=== PATIENT | male | born 1975 | race African-American/Black ===

== ENCOUNTER → 2022-06-06 | Outpatient (CLI) | payer SELFPAY ==
[2022-06-06 11:26] LABS: CLARITY URINE CLEAR (CLEAR); COLOR URINE YELLOW (YELLOW); KETONES URINE TRACE (NEGATIVE); LEUKOCYTE ESTERASE URINE NEGATIVE (NEGATIVE); NITRITE URINE NEGATIVE (NEGATIVE); OCCULT BLOOD URINE NEGATIVE (NEGATIVE); PH URINE 6.5 (4.5-8.0); PROTEIN URINE 2+ (NEGATIVE); SPECIFIC GRAVITY URINE 1.031 (1.005-1.030)
[2022-06-06 13:03] LABS: CHLORIDE 100 mEq/L (98-107)
== END | disposition home or self-care (01) ==
LOC: LAB 10:49
PROVIDERS: ATTEND Podiatrist
DX: I10 Essential (primary) hypertension (principal); E11.9 Type 2 diabetes mellitus without complications
CPT/HCPCS: 36415; 80048; 81003

== ENCOUNTER 2022-07-13 11:57 | Inpatient (IN) | payer MEDICAID, SELFPAY ==
[~2022-07-13] VITALS: Ht 180.3 cm; Wt 97.5 kg
[2022-07-13] MEDS ORDERED: SODIUM CHLORIDE 0.9% 1,000 ML IV ONE (12:30)
[2022-07-13 12:57] LABS: BASOPHILS % 0.8 % (0.0-2.0); EOSINOPHILS % 0.5 % (0.0-5.0); HEMATOCRIT. 36.6 % (42.0-52.0); LYMPHOCYTES % 15.1 % (20.0-50.0); MEAN CORPUSCULAR VOLUME 88.6 fL (80.0-94.0); MEAN PLATELET VOLUME 7.9 fl (7.4-10.4); MONOCYTES % 7.5 % (2.0-8.0); NEUTROPHILS % 76.1 % (40.0-76.0); PLATELET 416 x1000/uL (130-400); RED BLOOD CELL COUNT 4.13 mill/uL (4.7-6.1); RED CELL DISTRIBUTION WIDTH 12.7 % (11.6-14.6)
[2022-07-13 13:14] LABS: PROTHROMBIN TIME 11.2 sec (9.6-11.0)
[2022-07-13 16:03] LABS: CHLORIDE 96 mEq/L (98-107)
[2022-07-13 16:03] LABS: CLARITY URINE CLEAR (CLEAR); COLOR URINE YELLOW (YELLOW); KETONES URINE TRACE (NEGATIVE); LEUKOCYTE ESTERASE URINE TRACE (NEGATIVE); NITRITE URINE NEGATIVE (NEGATIVE); OCCULT BLOOD URINE 2+ (NEGATIVE); PROTEIN URINE 2+ (NEGATIVE); SPECIFIC GRAVITY URINE 1.016 (1.005-1.030); UROBILINOGEN URINE 0.2 E.U./dL (0.2-1.0)
[2022-07-13 16:28] LABS: ETHANOL BLOOD < 10 mg/dL
[2022-07-13] MEDS ORDERED: CEFTRIAXONE 1 G PREMIX 50 ML IV ONE (16:30)
[2022-07-13 16:32] LABS: *AMPHETAMINES SCREEN URINE NEGATIVE (NEGATIVE); *BARBITURATES SCREEN URINE NEGATIVE (NEGATIVE); *BENZODIAZEPINES SCREEN URINE NEGATIVE (NEGATIVE); *COCAINE SCREEN URINE NEGATIVE (NEGATIVE); CANNABINOID URINE SCREEN NEGATIVE (NEGATIVE); METHADONE URINE SCREEN NEGATIVE (NEGATIVE); OPIATES URINE SCREEN PRESUMTIVE POSITIVE (NEGATIVE); PHENCYCLIDINE URINE SCREEN NEGATIVE (NEGATIVE)
[2022-07-14 04:19] VITALS: BP 132/70
[2022-07-14 04:20] VITALS: BP 132/70
[2022-07-14 08:00] VITALS: BP 128/75
[2022-07-14] MEDS ORDERED: DEXTROSE 50% WATER 50ML SYRINGE IV PRN (08:45)
[2022-07-14] MEDS ORDERED: ONDANSETRON HCL 4MG/2ML INJ IV PRN (08:45)
[2022-07-14] MEDS ORDERED: POTASSIUM CHLORIDE 20MEQ TABLET SR PO SCH (09:00)
[2022-07-14 11:54] VITALS: BP_SYST 110; BP_SYST 123; BP_SYST 147; BP_DIAS 63; BP_DIAS 81; BP_DIAS 83
[2022-07-14] MEDS: BLOOD SUGAR DIAGNOSTIC STRIP TEST SCH ×3 (12:13→20:11)
[2022-07-14] MEDS: INSULIN LISPRO 100 UNITS/ML SUBCUT SCH ×3 (12:47→20:11)
[2022-07-14] MEDS ORDERED: LISI40TA13 PO (13:01)
[2022-07-14] MEDS ORDERED: HYDR25TA PO (13:01)
[2022-07-14] MEDS ORDERED: CIPR500S4 PO (13:01)
[2022-07-14] MEDS ORDERED: ATOR20TA65 PO (13:01)
[2022-07-14] MEDS ORDERED: METF-414 PO (13:01)
[2022-07-14] MEDS ORDERED: TAMS-11 PO (13:01)
[2022-07-14] MEDS ORDERED: AMLO10TA80 PO (13:01)
[2022-07-14 15:40] VITALS: BP_SYST 127; BP_SYST 138; BP_SYST 144; BP_DIAS 81; BP_DIAS 83; BP_DIAS 85
[2022-07-14] MEDS: CEFTRIAXONE 1,000 MG in DEXTROSE 5% WATER 50 ML IV SCH (16:39)
[2022-07-14 20:00] VITALS: BP 136/82
[2022-07-15] VITALS: BP 159/86
[2022-07-15 04:00] VITALS: BP 142/89
[2022-07-15] MEDS: BLOOD SUGAR DIAGNOSTIC STRIP TEST SCH ×4 (05:43→20:08)
[2022-07-15] MEDS: INSULIN LISPRO 100 UNITS/ML SUBCUT SCH ×4 (05:53→20:19)
[2022-07-15 07:55] VITALS: BP 133/76
[2022-07-15 12:00] VITALS: BP 135/73
[2022-07-15 16:00] VITALS: BP_SYST 136; BP_SYST 147; BP_SYST 152; BP_DIAS 88
[2022-07-15] MEDS: CEFTRIAXONE 1,000 MG in DEXTROSE 5% WATER 50 ML IV SCH (16:45)
[2022-07-15 20:00] VITALS: BP 145/77
[2022-07-16] VITALS: BP 155/83
[2022-07-16 04:00] VITALS: BP 156/88
[2022-07-16 06:34] LABS: BASOPHILS % 1.2 % (0.0-2.0); EOSINOPHILS % 3.1 % (0.0-5.0); HEMATOCRIT. 33.9 % (42.0-52.0); HEMOGLOBIN. 11.4 g/dL (14.0-18.0); LYMPHOCYTES % 37.1 % (20.0-50.0); MEAN CORPUSCULAR HEMOGLOBIN 29.5 pg (28.0-32.0); MEAN CORPUSCULAR VOLUME 87.5 fL (80.0-94.0); MONOCYTES % 10.8 % (2.0-8.0); NEUTROPHILS % 47.8 % (40.0-76.0); PLATELET 361 x1000/uL (130-400); RED BLOOD CELL COUNT 3.87 mill/uL (4.7-6.1)
[2022-07-16] MEDS: BLOOD SUGAR DIAGNOSTIC STRIP TEST SCH ×4 (06:37→21:25)
[2022-07-16 06:40] LABS: CHLORIDE 102 mEq/L (98-107)
[2022-07-16] MEDS: INSULIN LISPRO 100 UNITS/ML SUBCUT SCH ×4 (06:43→21:25)
[2022-07-16 08:00] VITALS: BP 135/111
[2022-07-16] MEDS: SODIUM HYPOCHLORITE (0.25%) 480ML SOLUTION (HALF STRENGTH) TOP SCH (08:39)
[2022-07-16 12:00] VITALS: BP 155/88
[2022-07-16] MEDS: AMLODIPINE 5MG TABLET PO SCH (12:52)
[2022-07-16] MEDS: TAMSULOSIN HCL 0.4MG SR CAPSULE PO SCH (12:52)
[2022-07-16 16:00] VITALS: BP_SYST 118; BP_SYST 125; BP_SYST 134; BP_DIAS 68; BP_DIAS 73; BP_DIAS 80
[2022-07-16] MEDS: CEFTRIAXONE 1,000 MG in DEXTROSE 5% WATER 50 ML IV SCH (16:10)
[2022-07-16 20:00] VITALS: BP 151/81
[2022-07-16] MEDS: ATORVASTATIN CALCIUM 20MG TABLET PO SCH (21:24)
[2022-07-16] MEDS: ACETAMINOPHEN 325MG TABLET PO PRN (21:25)
[2022-07-17] VITALS: BP 134/75
[2022-07-17 04:00] VITALS: BP 142/79
[2022-07-17] MEDS: INSULIN LISPRO 100 UNITS/ML SUBCUT SCH ×4 (06:18→21:47)
[2022-07-17] MEDS: BLOOD SUGAR DIAGNOSTIC STRIP TEST SCH ×4 (06:18→21:48)
[2022-07-17 06:52] LABS: BASOPHILS % 0.8 % (0.0-2.0); EOSINOPHILS % 2.6 % (0.0-5.0); HEMATOCRIT. 30.8 % (42.0-52.0); HEMOGLOBIN. 10.3 g/dL (14.0-18.0); LYMPHOCYTES % 32.6 % (20.0-50.0); MEAN CORPUSCULAR HEMOGLOBIN 29.1 pg (28.0-32.0); MEAN CORPUSCULAR VOLUME 87.1 fL (80.0-94.0); MEAN PLATELET VOLUME 8.2 fl (7.4-10.4); PLATELET 366 x1000/uL (130-400); RED BLOOD CELL COUNT 3.54 mill/uL (4.7-6.1); RED CELL DISTRIBUTION WIDTH 12.9 % (11.6-14.6)
[2022-07-17 07:13] LABS: CHLORIDE 101 mEq/L (98-107)
[2022-07-17 08:00] VITALS: BP 130/76
[2022-07-17] MEDS: TAMSULOSIN HCL 0.4MG SR CAPSULE PO SCH (08:16)
[2022-07-17] MEDS: SODIUM HYPOCHLORITE (0.25%) 480ML SOLUTION (HALF STRENGTH) TOP SCH (08:16)
[2022-07-17] MEDS: AMLODIPINE 5MG TABLET PO SCH (08:16)
[2022-07-17 12:00] VITALS: BP 133/83
[2022-07-17] MEDS ORDERED: LACTULOSE 20G/30ML UDC PO SCH (12:30)
[2022-07-17] MEDS: ACETAMINOPHEN 325MG TABLET PO PRN (12:38)
[2022-07-17] MEDS ORDERED: LIDOCAINE HCL 1% 20ML VIAL (Pyxis) INJ INFIL SCH (14:00)
[2022-07-17] MEDS ORDERED: BUPIVACAINE HCL/PF 0.25% (2.5MG/ML) 10ML INFIL SCH (14:00)
[2022-07-17 16:00] VITALS: BP 136/78
[2022-07-17] MEDS: CEFTRIAXONE 1,000 MG in DEXTROSE 5% WATER 50 ML IV SCH (17:20)
[2022-07-17 20:00] VITALS: BP 130/74
[2022-07-17] MEDS: ATORVASTATIN CALCIUM 20MG TABLET PO SCH (21:47)
[2022-07-17] MEDS: INSULIN GLARGINE 100 UNITS/ML SUBCUT SCH (21:48)
[2022-07-17] MEDS: HYDROCODONE/ACETAMINOPHEN 5/325MG TABLET PO PRN (22:24)
[2022-07-18] VITALS: BP 149/88
[2022-07-18 04:00] VITALS: BP 152/79
[2022-07-18] MEDS: INSULIN LISPRO 100 UNITS/ML SUBCUT SCH ×4 (06:23→20:38)
[2022-07-18] MEDS: BLOOD SUGAR DIAGNOSTIC STRIP TEST SCH ×4 (06:33→20:39)
[2022-07-18 08:00] VITALS: BP 128/69
[2022-07-18] MEDS: INSULIN GLARGINE 100 UNITS/ML SUBCUT SCH ×2 (09:07→21:22)
[2022-07-18] MEDS: AMLODIPINE 5MG TABLET PO SCH (09:09)
[2022-07-18] MEDS: TAMSULOSIN HCL 0.4MG SR CAPSULE PO SCH (09:09)
[2022-07-18] MEDS: SODIUM HYPOCHLORITE (0.25%) 480ML SOLUTION (HALF STRENGTH) TOP SCH (09:10)
[2022-07-18] MEDS ORDERED: IOHEXOL-350 100 ML BOTTLE ONE (10:35)
[2022-07-18 12:00] VITALS: BP 164/83
[2022-07-18] MEDS ORDERED: LIDOCAINE HCL 1% 10 MG/ML 10ML VIAL INL NR (12:00)
[2022-07-18] MEDS ORDERED: BUPIVACAINE HCL/PF 0.25% (2.5MG/ML) 10ML INFIL NR (12:00)
[2022-07-18] MEDS ORDERED: MORPHINE SULFATE 2 MG/ML CPJ (NOT FOR IM USE) IV SCH (14:15)
[2022-07-18] MEDS ORDERED: LIDOCAINE HCL 1% 10 MG/ML 10ML VIAL INL SCH (14:15)
[2022-07-18 16:00] VITALS: BP 128/60
[2022-07-18] MEDS: CEFTRIAXONE 1,000 MG in DEXTROSE 5% WATER 50 ML IV SCH (18:00)
[2022-07-18 20:00] VITALS: BP 149/80
[2022-07-18] MEDS: ATORVASTATIN CALCIUM 20MG TABLET PO SCH (20:35)
[2022-07-18] MEDS: ACETAMINOPHEN 325MG TABLET PO PRN (20:36)
[2022-07-18] MEDS ORDERED: NALOXONE HCL 0.4MG/ML VIAL IV PRN (20:45)
[2022-07-18] MEDS ORDERED: CEFEPIME 1,000 MG in DEXTROSE 5% WATER 50 ML IV SCH (21:00)
[2022-07-18] MEDS: CLONIDINE 0.1MG TABLET PO PRN (21:22)
[2022-07-18] MEDS: CEFEPIME 1,000 MG in DEXTROSE 5% WATER 50 ML IV SCH (21:23)
[2022-07-19] VITALS: BP 154/84
[2022-07-19] MEDS ORDERED: VANCOMYCIN 2,000 MG in DEXT 5% WATER 500 ML IV NR (01:00)
[2022-07-19 04:00] VITALS: BP 142/88
[2022-07-19] MEDS: CEFEPIME 1,000 MG in DEXTROSE 5% WATER 50 ML IV SCH ×3 (05:23→21:46)
[2022-07-19] MEDS: ACETAMINOPHEN 325MG TABLET PO PRN ×2 (06:02→12:34)
[2022-07-19] MEDS: BLOOD SUGAR DIAGNOSTIC STRIP TEST SCH ×4 (07:20→20:58)
[2022-07-19] MEDS: INSULIN LISPRO 100 UNITS/ML SUBCUT SCH ×4 (07:22→21:48)
[2022-07-19 08:00] VITALS: BP 153/81
[2022-07-19] MEDS: AMLODIPINE 5MG TABLET PO SCH (08:43)
[2022-07-19] MEDS: SODIUM HYPOCHLORITE (0.25%) 480ML SOLUTION (HALF STRENGTH) TOP SCH (08:44)
[2022-07-19] MEDS: TAMSULOSIN HCL 0.4MG SR CAPSULE PO SCH (08:44)
[2022-07-19] MEDS ORDERED: VANCOMYCIN 1GM PMX (XELLIA) 200 ML IV SCH (10:00)
[2022-07-19] MEDS: INSULIN GLARGINE 100 UNITS/ML SUBCUT SCH ×2 (10:53→21:49)
[2022-07-19 12:00] VITALS: BP 114/79
[2022-07-19] MEDS: VANCOMYCIN 1GM PMX (XELLIA) 200 ML IV SCH ×2 (14:55→21:46)
[2022-07-19 16:00] VITALS: BP 147/85
[2022-07-19] MEDS: DOCUSATE SODIUM 250MG CAPSULE PO SCH (17:29)
[2022-07-19 20:00] VITALS: BP 145/76
[2022-07-19] MEDS: ATORVASTATIN CALCIUM 20MG TABLET PO SCH (20:53)
[2022-07-19] MEDS: LACTULOSE 20G/30ML UDC PO PRN (20:53)
[2022-07-20] VITALS: BP 149/76
[2022-07-20] MEDS ORDERED: NA PHOS,M-B/NA PHOS,DI-BA ENEMA 118ML PR ONE (00:30)
[2022-07-20] MEDS ORDERED: NA PHOS,M-B/NA PHOS,DI-BA ENEMA 118ML PR PRN (01:00)
[2022-07-20 04:00] VITALS: BP 147/76
[2022-07-20] MEDS: VANCOMYCIN 1GM PMX (XELLIA) 200 ML IV SCH (05:12)
[2022-07-20] MEDS: CEFEPIME 1,000 MG in DEXTROSE 5% WATER 50 ML IV SCH ×3 (05:12→21:32)
[2022-07-20 06:16] LABS: BASOPHILS % 0.7 % (0.0-2.0); EOSINOPHILS % 0.7 % (0.0-5.0); HEMATOCRIT. 33.8 % (42.0-52.0); HEMOGLOBIN. 11.4 g/dL (14.0-18.0); LYMPHOCYTES % 12.2 % (20.0-50.0); MEAN CORPUSCULAR HEMOGLOBIN 29.5 pg (28.0-32.0); MEAN CORPUSCULAR VOLUME 87.8 fL (80.0-94.0); MEAN PLATELET VOLUME 8.2 fl (7.4-10.4); NEUTROPHILS % 77.4 % (40.0-76.0); PLATELET 372 x1000/uL (130-400); RED BLOOD CELL COUNT 3.85 mill/uL (4.7-6.1); RED CELL DISTRIBUTION WIDTH 12.9 % (11.6-14.6)
[2022-07-20] MEDS: BLOOD SUGAR DIAGNOSTIC STRIP TEST SCH ×2 (06:23→21:30)
[2022-07-20 06:55] LABS: CHLORIDE 103 mEq/L (98-107)
[2022-07-20 07:03] LABS: VANCOMYCIN TROUGH 19.8 ug/mL (5.0-10.0)
[2022-07-20] MEDS: DOCUSATE SODIUM 250MG CAPSULE PO SCH (08:39)
[2022-07-20] MEDS: AMLODIPINE 5MG TABLET PO SCH (08:39)
[2022-07-20] MEDS: TAMSULOSIN HCL 0.4MG SR CAPSULE PO SCH (08:40)
[2022-07-20] MEDS: SODIUM HYPOCHLORITE (0.25%) 480ML SOLUTION (HALF STRENGTH) TOP SCH (09:00)
[2022-07-20 12:00] VITALS: BP 160/83
[2022-07-20 16:00] VITALS: BP 158/85
[2022-07-20 20:00] VITALS: BP 167/81
[2022-07-20] MEDS: CLONIDINE 0.1MG TABLET PO PRN (21:25)
[2022-07-20] MEDS: ATORVASTATIN CALCIUM 20MG TABLET PO SCH (21:27)
[2022-07-20] MEDS: INSULIN LISPRO 100 UNITS/ML SUBCUT SCH (21:29)
[2022-07-20] MEDS: INSULIN GLARGINE 100 UNITS/ML SUBCUT SCH (21:30)
[2022-07-20] MEDS: ACETAMINOPHEN 325MG TABLET PO PRN (21:57)
[2022-07-21 00:36] VITALS: BP 135/86
[2022-07-21 04:00] VITALS: BP 120/85
[2022-07-21] MEDS: CEFEPIME 1,000 MG in DEXTROSE 5% WATER 50 ML IV SCH ×3 (05:14→22:00)
[2022-07-21] MEDS: VANCOMYCIN 1GM PMX (XELLIA) 200 ML IV SCH ×2 (05:15→18:21)
[2022-07-21] MEDS: BLOOD SUGAR DIAGNOSTIC STRIP TEST SCH ×4 (06:27→20:32)
[2022-07-21] MEDS: INSULIN LISPRO 100 UNITS/ML SUBCUT SCH ×4 (07:41→20:33)
[2022-07-21] MEDS ORDERED: IODIXANOL 320MG/ML 100 ML BOTTLE IV ONE (08:43)
[2022-07-21] MEDS ORDERED: LIDOCAINE HCL/PF 1% 10 MG/ML 5ML VIAL ONE (08:49)
[2022-07-21] MEDS: AMLODIPINE 5MG TABLET PO SCH (09:00)
[2022-07-21] MEDS: SODIUM HYPOCHLORITE (0.25%) 480ML SOLUTION (HALF STRENGTH) TOP SCH (09:00)
[2022-07-21] MEDS: DOCUSATE SODIUM 250MG CAPSULE PO SCH (09:00)
[2022-07-21] MEDS: TAMSULOSIN HCL 0.4MG SR CAPSULE PO SCH (09:00)
[2022-07-21] MEDS: INSULIN GLARGINE 100 UNITS/ML SUBCUT SCH ×2 (09:41→22:00)
[2022-07-21] MEDS ORDERED: MIDAZOLAM HCL 2 MG/2 ML VIAL ONE (10:01)
[2022-07-21] MEDS ORDERED: FENTANYL CITRATE/PF 50MCG/ML 2ML VIAL ONE (10:01)
[2022-07-21] MEDS ORDERED: HEPARIN 1000 UNITS/ML 10ML ONE (10:01)
[2022-07-21 11:40] VITALS: BP 156/90
[2022-07-21] MEDS: CLOPIDOGREL 75MG TABLET PO SCH (11:53)
[2022-07-21] MEDS: ACETAMINOPHEN 325MG TABLET PO PRN (11:53)
[2022-07-21] MEDS: CLONIDINE 0.1MG TABLET PO PRN (13:43)
[2022-07-21 16:00] VITALS: BP 150/86
[2022-07-21 20:00] VITALS: BP 159/85
[2022-07-21] MEDS: ATORVASTATIN CALCIUM 20MG TABLET PO SCH (21:00)
[2022-07-22] VITALS: BP 149/87
[2022-07-22] MEDS: HYDROCODONE/ACETAMINOPHEN 5/325MG TABLET PO PRN (03:07)
[2022-07-22 04:00] VITALS: BP 132/82
[2022-07-22] MEDS: CEFEPIME 1,000 MG in DEXTROSE 5% WATER 50 ML IV SCH ×3 (06:16→22:04)
[2022-07-22] MEDS: BLOOD SUGAR DIAGNOSTIC STRIP TEST SCH ×4 (06:16→21:00)
[2022-07-22] MEDS: INSULIN LISPRO 100 UNITS/ML SUBCUT SCH ×5 (06:21→22:06)
[2022-07-22] MEDS: VANCOMYCIN 1GM PMX (XELLIA) 200 ML IV SCH ×2 (06:23→17:50)
[2022-07-22 07:56] LABS: CHLORIDE 102 mEq/L (98-107)
[2022-07-22 08:00] VITALS: BP 148/86
[2022-07-22] MEDS: CLOPIDOGREL 75MG TABLET PO SCH (08:28)
[2022-07-22] MEDS: DOCUSATE SODIUM 250MG CAPSULE PO SCH (08:28)
[2022-07-22] MEDS: TAMSULOSIN HCL 0.4MG SR CAPSULE PO SCH (08:29)
[2022-07-22] MEDS: AMLODIPINE 5MG TABLET PO SCH ×2 (08:30→17:49)
[2022-07-22] MEDS: SODIUM HYPOCHLORITE (0.25%) 480ML SOLUTION (HALF STRENGTH) TOP SCH (08:31)
[2022-07-22] MEDS: INSULIN GLARGINE 100 UNITS/ML SUBCUT SCH ×2 (10:27→13:16)
[2022-07-22 12:00] VITALS: BP 162/90
[2022-07-22] MEDS: CLONIDINE 0.1MG TABLET PO PRN (12:52)
[2022-07-22 16:00] VITALS: BP 154/79
[2022-07-22] MEDS: ACETAMINOPHEN 325MG TABLET PO PRN (16:21)
[2022-07-22] MEDS ORDERED: LANTUSUD SUBCUT (18:17)
[2022-07-22 20:00] VITALS: BP 136/76
[2022-07-22] MEDS: ATORVASTATIN CALCIUM 20MG TABLET PO SCH (22:05)
[2022-07-23] VITALS: BP 138/78
[2022-07-23] MEDS: LACTULOSE 20G/30ML UDC PO PRN ×2 (03:07→18:09)
[2022-07-23] MEDS: CEFEPIME 1,000 MG in DEXTROSE 5% WATER 50 ML IV SCH ×3 (06:39→21:30)
[2022-07-23] MEDS: INSULIN LISPRO 100 UNITS/ML SUBCUT SCH ×4 (07:50→21:30)
[2022-07-23] MEDS: BLOOD SUGAR DIAGNOSTIC STRIP TEST SCH ×4 (07:54→21:31)
[2022-07-23] MEDS: VANCOMYCIN 1GM PMX (XELLIA) 200 ML IV SCH ×2 (07:55→18:07)
[2022-07-23 08:00] VITALS: BP 157/89
[2022-07-23] MEDS: DOCUSATE SODIUM 250MG CAPSULE PO SCH (09:10)
[2022-07-23] MEDS: TAMSULOSIN HCL 0.4MG SR CAPSULE PO SCH (09:11)
[2022-07-23] MEDS: AMLODIPINE 5MG TABLET PO SCH ×2 (09:11→18:07)
[2022-07-23] MEDS: SODIUM HYPOCHLORITE (0.25%) 480ML SOLUTION (HALF STRENGTH) TOP SCH (09:12)
[2022-07-23] MEDS: CLOPIDOGREL 75MG TABLET PO SCH (09:12)
[2022-07-23] MEDS: INSULIN GLARGINE 100 UNITS/ML SUBCUT SCH ×2 (10:29→21:29)
[2022-07-23 12:00] VITALS: BP 154/92
[2022-07-23] MEDS: ACETAMINOPHEN 325MG TABLET PO PRN ×2 (13:10→21:55)
[2022-07-23 16:00] VITALS: BP 148/76
[2022-07-23] MEDS: ATORVASTATIN CALCIUM 20MG TABLET PO SCH (21:26)
[2022-07-23] MEDS: GABAPENTIN 100MG CAPSULE PO SCH (21:26)
[2022-07-24 04:00] VITALS: BP 160/93
[2022-07-24] MEDS: GABAPENTIN 100MG CAPSULE PO SCH ×2 (06:21→12:59)
[2022-07-24] MEDS: CLONIDINE 0.1MG TABLET PO PRN (06:22)
[2022-07-24] MEDS: BLOOD SUGAR DIAGNOSTIC STRIP TEST SCH ×2 (07:20→13:05)
[2022-07-24] MEDS: INSULIN LISPRO 100 UNITS/ML SUBCUT SCH ×2 (07:50→13:04)
[2022-07-24 07:59] VITALS: BP 133/76
[2022-07-24] MEDS: TAMSULOSIN HCL 0.4MG SR CAPSULE PO SCH (08:28)
[2022-07-24] MEDS: DOCUSATE SODIUM 250MG CAPSULE PO SCH (08:29)
[2022-07-24] MEDS: CLOPIDOGREL 75MG TABLET PO SCH (08:29)
[2022-07-24] MEDS: AMLODIPINE 5MG TABLET PO SCH (08:29)
[2022-07-24] MEDS: SODIUM HYPOCHLORITE (0.25%) 480ML SOLUTION (HALF STRENGTH) TOP SCH (08:31)
[2022-07-24] MEDS: INSULIN GLARGINE 100 UNITS/ML SUBCUT SCH (10:34)
[2022-07-24 12:00] VITALS: BP 156/85
[2022-07-24 12:47] VITALS: BP 156/85
[2022-07-24] MEDS ORDERED: GABA-532 MT (13:15)
== END 2022-07-24 15:11 | disposition home or self-care (01) | DRG 317 ==
LOC: ER 11:57 → MICUSO 16:14 → EDBEDREQTM 16:17 → EDBEDREQ 16:17 → 8WST 07-14 04:45 → 6EST 07-18 10:34
PROVIDERS: ADMIT Internal Medicine; ATTEND Internal Medicine
PROC: 0LBS0ZZ Excision of Right Ankle Tendon, Open Approach (ICD-10-PCS; 2022-07-18)
PROC: 047S3ZZ Dilation of Left Posterior Tibial Artery, Percutaneous Approach (ICD-10-PCS; principal; 2022-07-21)
PROC: 047Q3ZZ Dilation of Left Anterior Tibial Artery, Percutaneous Approach (ICD-10-PCS; 2022-07-21)
PROC: B41GYZZ Fluoroscopy of Left Lower Extremity Arteries using Other Contrast (ICD-10-PCS; 2022-07-21)
DX: T87.44 Infection of amputation stump, left lower extremity (principal); E43 Unspecified severe protein-calorie malnutrition; E11.51 Type 2 diabetes mellitus with diabetic peripheral angiopathy without gangrene; G90.8 Other disorders of autonomic nervous system; E87.1 Hypo-osmolality and hyponatremia; L97.529 Non-pressure chronic ulcer of other part of left foot with unspecified severity; E11.621 Type 2 diabetes mellitus with foot ulcer; D64.9 Anemia, unspecified; E87.6 Hypokalemia; N39.0 Urinary tract infection, site not specified; Z68.30 Body mass index [BMI] 30.0-30.9, adult; Z79.4 Long term (current) use of insulin
CPT/HCPCS: 36415; 37228; 37232; 71045; 73630; 75635; 75710; 80048; 80053; 80202; 80305; 80320; 81003; 82962; 83036; 83605; 83880; 84484; 85025; 85651; 86850; 86900; 87070; 87077; 87186; 87426; 93005; 93306; 93923; 99285; C1725; C1760; C1769; C1887; C1893; C1894; J0692; J0696; J1644; J1815; J2250; J2270; J3010; J3370; J3490; J7030; J7060; Q9967; G0480

== ENCOUNTER 2022-07-25 20:55 | Emergency (ER) | payer MEDICAID ==
[~2022-07-25] VITALS: Ht 180.3 cm; Wt 98.4 kg
[~2022-07-25 20:55] MED LIST: AMLO10TA80 PO; ATOR20TA65 PO; GABA-532 MT; HYDR25TA PO; LANTUSUD SUBCUT; LISI40TA13 PO; METF-414 PO; TAMS-11 PO
[2022-07-25 22:12] VITALS: BP 144/80
[2022-07-26] MEDS ORDERED: NA P133E4 RC ×3 (01:10→01:11)
== END 2022-07-26 01:29 | disposition home or self-care (01) ==
LOC: ER 20:55
DX: K59.00 Constipation, unspecified (principal); E11.9 Type 2 diabetes mellitus without complications; I10 Essential (primary) hypertension; Z88.8 Allergy status to other drugs, medicaments and biological substances; Z89.429 Acquired absence of other toe(s), unspecified side
CPT/HCPCS: 99282

== ENCOUNTER 2025-06-04 11:43 | Inpatient (IN) | payer MEDICAID ==
[~2025-06-04] VITALS: Ht 180.3 cm; Wt 138.3 kg
[~2025-06-04 11:43] MED LIST changes: +GABA-1180 MT; -GABA-532 MT; +NA P133E4 RC; -TAMS-11 PO; +TAMS-54 PO
[2025-06-04 11:50] VITALS: O2SAT 99
[2025-06-04] MEDS: PIPERACILLIN/TAZO 3.375G/50ML 50 ML IV SCH ×2 (15:37→23:08)
[2025-06-04 15:44] LABS: BASOPHILS % 0.5 % (0.0-2.0); EOSINOPHILS % 0.9 % (0.0-5.0); HEMATOCRIT. 43.5 % (42.0-52.0); HEMOGLOBIN. 14.0 g/dL (14.0-18.0); LYMPHOCYTES % 15.7 % (20.0-50.0); MEAN PLATELET VOLUME 8.6 fl (7.4-10.4); MONOCYTES % 6.9 % (2.0-8.0); NEUTROPHILS % 76.0 % (40.0-76.0); PLATELET 325 x1000/uL (130-400); RED BLOOD CELL COUNT 4.77 mill/uL (4.7-6.1); RED CELL DISTRIBUTION WIDTH 14.3 % (11.6-14.6)
[2025-06-04 16:00] LABS: CREATININE 1.1 mg/dL (0.6-1.3); UREA NITROGEN BLOOD 20 mg/dL (9-23)
[2025-06-04 17:49] VITALS: BP 170/96; PULSE 80; RESP 18; TEMP 36.7516
[2025-06-04] MEDS ORDERED: HYDROCODONE/ACETAMINOPHEN 5/325MG TABLET PO PRN ×2 (19:45→20:00)
[2025-06-04] MEDS ORDERED: DEXTROSE 50% WATER 50ML SYRINGE IV PRN (20:00)
[2025-06-04] MEDS: VANCOMYCIN 1G PREMIX 200 ML IV SCH ×2 (20:14→21:36)
[2025-06-04 20:49] VITALS: BP 163/90; PULSE 78; RESP 18; TEMP 36.3; O2SAT 97
[2025-06-04] MEDS: ATORVASTATIN CALCIUM 20MG TABLET PO SCH (21:53)
[2025-06-04] MEDS: LISINOPRIL 40MG TABLET PO SCH (21:53)
[2025-06-04] MEDS: AMLODIPINE 10MG TABLET PO SCH (21:54)
[2025-06-04] MEDS: HYDROCHLOROTHIAZIDE 25MG TABLET PO SCH (21:54)
[2025-06-04] MEDS: BLOOD SUGAR DIAGNOSTIC STRIP TEST SCH (21:55)
[2025-06-04] MEDS: INSULIN GLARGINE 100 UNITS/ML SUBCUT SCH (22:03)
[2025-06-04] MEDS: INSULIN LISPRO 100 UNITS/ML SUBCUT SCH (22:18)
[2025-06-05 00:15] VITALS: BP 145/91; PULSE 77; RESP 18; TEMP 36.2
[2025-06-05 05:39] VITALS: BP 176/95; PULSE 82; RESP 18; TEMP 37.1; O2SAT 95
[2025-06-05 08:00] VITALS: BP 158/89; PULSE 78; RESP 18; TEMP 36.6; O2SAT 97
[2025-06-05] MEDS: GABAPENTIN 300MG CAPSULE PO SCH (09:42)
[2025-06-05] MEDS: METFORMIN HCL 500MG TABLET PO SCH (09:49)
[2025-06-05] MEDS ORDERED: NALOXONE HCL 0.4MG/ML VIAL IV PRN (11:30)
[2025-06-05 12:00] VITALS: BP 155/81; PULSE 75; RESP 18; TEMP 36.5; O2SAT 98
[2025-06-05 16:00] VITALS: BP 183/87; PULSE 77; RESP 18; TEMP 36.6; O2SAT 98
[2025-06-05 20:00] VITALS: BP 141/83; PULSE 87; RESP 18; TEMP 36.9; O2SAT 95
[2025-06-05] MEDS: ENOXAPARIN 30MG/0.3ML SYR SUBCUT SCH (22:10)
[2025-06-05] MEDS: GUAIFENESIN-DM 200MG-20MG/10ML UDC PO PRN (22:17)
[2025-06-05] MEDS: INSULIN GLARGINE 100 UNITS/ML SUBCUT SCH (22:20)
[2025-06-06 00:35] VITALS: BP 154/82; PULSE 89; RESP 18; TEMP 36.5; O2SAT 95
[2025-06-06 04:40] VITALS: BP 169/95; PULSE 90; RESP 20; TEMP 36.4; O2SAT 97
[2025-06-06] MEDS: CLONIDINE 0.1MG TABLET PO PRN (04:41)
[2025-06-06 05:59] LABS: BASOPHILS % 0.5 % (0.0-2.0); EOSINOPHILS % 1.5 % (0.0-5.0); HEMATOCRIT. 40.8 % (42.0-52.0); HEMOGLOBIN. 13.2 g/dL (14.0-18.0); LYMPHOCYTES % 16.3 % (20.0-50.0); MEAN PLATELET VOLUME 8.5 fl (7.4-10.4); MONOCYTES % 7.8 % (2.0-8.0); NEUTROPHILS % 73.9 % (40.0-76.0); PLATELET 328 x1000/uL (130-400); RED BLOOD CELL COUNT 4.54 mill/uL (4.7-6.1); RED CELL DISTRIBUTION WIDTH 13.8 % (11.6-14.6)
[2025-06-06 06:40] LABS: CREATININE 1.3 mg/dL (0.6-1.3); UREA NITROGEN BLOOD 20 mg/dL (9-23)
[2025-06-06 08:00] VITALS: BP 141/84; PULSE 77; RESP 20; TEMP 36.4; O2SAT 94
[2025-06-06 12:00] VITALS: BP 164/98; PULSE 82; RESP 20; TEMP 36.4; O2SAT 97
[2025-06-06] MEDS: VANCOMYCIN 750MG PMX (XELLIA) 150 ML IV SCH (12:14)
[2025-06-06] MEDS ORDERED: IOHEXOL-350 100 ML BOTTLE ONE (14:45)
[2025-06-06 16:00] VITALS: BP 141/73; PULSE 77; RESP 20; TEMP 36.5; O2SAT 96
[2025-06-06 20:00] VITALS: BP 124/73; PULSE 74; RESP 18; TEMP 36.3; O2SAT 95
[2025-06-07] VITALS: BP 135/70; PULSE 79; RESP 19; TEMP 36.4; O2SAT 94
[2025-06-07 04:00] VITALS: BP 114/72; PULSE 67; RESP 19; TEMP 36.4; O2SAT 94
[2025-06-07 08:00] VITALS: BP 136/70; PULSE 83; RESP 18; TEMP 37.2; O2SAT 97
[2025-06-07 12:00] VITALS: BP 144/66; PULSE 83; RESP 20; TEMP 36.6; O2SAT 97
[2025-06-07] MEDS: INSULIN LISPRO 100 UNITS/ML SUBCUT SCH (12:38)
[2025-06-07 16:00] VITALS: BP 154/77; PULSE 79; RESP 20; TEMP 36.9; O2SAT 99
[2025-06-07 20:00] VITALS: BP 172/88; PULSE 78; RESP 20; TEMP 37; O2SAT 99
[2025-06-08] VITALS: BP 133/73; PULSE 80; RESP 18; TEMP 37; O2SAT 97
[2025-06-08 04:00] VITALS: BP 148/79; PULSE 75; RESP 18; TEMP 36.8; O2SAT 97
[2025-06-08] MEDS ORDERED: ETOMIDATE 2MG/ML 10ML VIAL IV ONE (07:46)
[2025-06-08] MEDS ORDERED: MIDAZOLAM HCL 2 MG/2 ML VIAL ONE (07:47)
[2025-06-08] MEDS ORDERED: FENTANYL CITRATE/PF 50MCG/ML 2ML VIAL ONE (07:47)
[2025-06-08 08:00] VITALS: BP 163/86; PULSE 78; RESP 18; TEMP 36.6; O2SAT 97
[2025-06-08 12:00] VITALS: BP 154/82; PULSE 82; RESP 20; TEMP 36.6; O2SAT 98
[2025-06-08 16:00] VITALS: BP 147/77; PULSE 75; RESP 18; TEMP 36.8; O2SAT 99
[2025-06-08] MEDS: CEFTRIAXONE 2GM/50ML 50 ML IV SCH (17:05)
[2025-06-08 20:00] VITALS: BP 150/63; PULSE 74; RESP 18; TEMP 36.1; O2SAT 97
[2025-06-08] MEDS: METRONIDAZOLE 500MG TABLET PO SCH (21:17)
[2025-06-09] VITALS (7 sets, daily range): BP systolic 118–184; BP diastolic 52–77; PULSE 74–89; RESP 18–19; TEMP 36.4–37; O2SAT 97–98
[2025-06-09] MEDS: HYDRALAZINE HCL 25MG TABLET PO SCH (15:05)
[2025-06-10] VITALS: BP 153/90; PULSE 77; RESP 18; TEMP 37; O2SAT 97
[2025-06-10 04:20] VITALS: BP 154/74; PULSE 75; RESP 18; TEMP 36.8; O2SAT 97
[2025-06-10 08:00] VITALS: BP 129/64; PULSE 71; RESP 18; TEMP 35.6; O2SAT 97
[2025-06-10 12:00] VITALS: BP 134/74; PULSE 81; RESP 18; TEMP 36.9; O2SAT 99
[2025-06-10 16:00] VITALS: BP 152/81; PULSE 77; RESP 18; TEMP 36.7; O2SAT 98
[2025-06-10 20:00] VITALS: BP 146/75; PULSE 84; RESP 20; TEMP 36.4; O2SAT 95
[2025-06-11] VITALS: BP 165/95; PULSE 89; RESP 20; TEMP 36.2; O2SAT 98
[2025-06-11 04:00] VITALS: BP 129/85; PULSE 67; RESP 20; TEMP 36.3; O2SAT 95
[2025-06-11] MEDS ORDERED: LIDOCAINE HCL 1% 10 MG/ML 10ML VIAL ONE (07:39)
[2025-06-11 08:00] VITALS: BP 138/72; PULSE 74; RESP 18; TEMP 37.1; O2SAT 98
[2025-06-11 12:00] VITALS: BP 151/87; PULSE 74; RESP 17; TEMP 36.4; O2SAT 96
[2025-06-11 16:00] VITALS: BP 169/98; PULSE 75; RESP 18; TEMP 36.5; O2SAT 97
[2025-06-11 20:00] VITALS: BP 137/83; PULSE 70; RESP 16; TEMP 36; O2SAT 98
[2025-06-12] VITALS: BP 143/88; PULSE 74; RESP 16; TEMP 36.3; O2SAT 98
[2025-06-12 04:00] VITALS: BP 153/84; PULSE 77; RESP 16; TEMP 36.2; O2SAT 99
[2025-06-12 08:00] VITALS: BP 149/86; PULSE 75; RESP 18; TEMP 36.1; O2SAT 96
[2025-06-12 10:07] VITALS: BP 149/85; PULSE 75; RESP 18; TEMP 97
[2025-06-12] MEDS ORDERED: HYDR25TA MT (11:42)
[2025-06-12] MEDS ORDERED: AMLO10TA80 MT (11:42)
[2025-06-12] MEDS ORDERED: LISI40TA13 MT (11:42)
[2025-06-12 12:00] VITALS: BP 156/91; PULSE 85; RESP 18; TEMP 36.4; O2SAT 95
== END 2025-06-12 15:20 | disposition home health service (06) | DRG 349 ==
LOC: ER 11:50 → 8WST 15:48 → EDBEDREQTM 15:53 → EDBEDREQ 15:53 → EDBEDREQSVC 15:53 → ENRESERV 15:58 → 6EST 06-10 17:03
PROVIDERS: ADMIT Internal Medicine; ATTEND Internal Medicine
PROC: 02HV33Z Insertion of Infusion Device into Superior Vena Cava, Percutaneous Approach (ICD-10-PCS; principal; 2025-06-11)
PROC: B548ZZA Ultrasonography of Superior Vena Cava, Guidance (ICD-10-PCS; 2025-06-11)
DX: T87.44 Infection of amputation stump, left lower extremity (principal); E11.51 Type 2 diabetes mellitus with diabetic peripheral angiopathy without gangrene; E11.621 Type 2 diabetes mellitus with foot ulcer; L03.116 Cellulitis of left lower limb; L97.429 Non-pressure chronic ulcer of left heel and midfoot with unspecified severity; E11.65 Type 2 diabetes mellitus with hyperglycemia; E11.69 Type 2 diabetes mellitus with other specified complication; I10 Essential (primary) hypertension; E66.9 Obesity, unspecified; Z53.20 Procedure and treatment not carried out because of patient's decision for unspecified reasons; Y83.5 Amputation of limb(s) as the cause of abnormal reaction of the patient, or of later complication, without mention of misadventure at the time of the procedure; M86.8X7 Other osteomyelitis, ankle and foot; I70.202 Unspecified atherosclerosis of native arteries of extremities, left leg; Z79.899 Other long term (current) drug therapy; Z79.84 Long term (current) use of oral hypoglycemic drugs; Z79.4 Long term (current) use of insulin; Y92.89 Other specified places as the place of occurrence of the external cause; Z68.41 Body mass index [BMI] 40.0-44.9, adult
CPT/HCPCS: 36415; 36573; 71045; 73630; 73721; 75635; 80048; 80202; 82962; 83036; 85025; 85651; 86141; 93923; 97162; 97530; 97542; 99285; A4606; A6449; C1725; J0696; J1650; J1815; J2003; J2250; J2543; J3010; J3373; J3490; Q9967

== ENCOUNTER 2025-09-01 12:31 | Inpatient (IN) | payer MEDICAID ==
[~2025-09-01] VITALS: Ht 180.3 cm; Wt 134.7 kg
[~2025-09-01 12:31] MED LIST changes: +AMLO10TA80 MT; +HYDR25TA MT; +INSU100V43 SQ; -LISI40TA13 PO; +LISI40TA21 MT; +LISI40TA21 PO; +METF-414 MT; -NA P133E4 RC
[2025-09-01 12:40] VITALS: O2SAT 100
[2025-09-01] MEDS: ACETAMINOPHEN 500MG TABLET PO ONE (13:09)
[2025-09-01] MEDS: PIPERACILLIN/TAZO 3.375G/50ML 50 ML IV ONE (13:59)
[2025-09-01] MEDS: SODIUM CHLORIDE 0.9% (SEPSIS BOLUS) IV ONE (14:15)
[2025-09-01 14:26] LABS: HEMATOCRIT. 41.0 % (42.0-52.0); HEMOGLOBIN. 13.3 g/dL (14.0-18.0); MEAN PLATELET VOLUME 9.3 fl (7.4-10.4); PLATELET 136 x1000/uL (130-400); RED BLOOD CELL COUNT 4.71 mill/uL (4.7-6.1); RED CELL DISTRIBUTION WIDTH 14.4 % (11.6-14.6)
[2025-09-01] MEDS: VANCOMYCIN 1G PREMIX 200 ML IV ONE (14:45)
[2025-09-01 14:51] LABS: UREA NITROGEN BLOOD 26 mg/dL (9-23)
[2025-09-01 14:53] LABS: ASPARTATE AMINOTRANSFERASE 17 IU/L (<34); BILIRUBIN DIRECT 0.2 mg/dL (<=3.0)
[2025-09-01 14:54] LABS: BILIRUBIN TOTAL 0.7 mg/dL (0.1-1.0); PROTEIN TOTAL 6.3 g/dL (6.0-8.3)
[2025-09-01 14:57] LABS: BAND% 26.0 % (1.0-6.0); LYMPHOCYTES % MANUAL 2.0 % (20.0-50.0); METAMYELOCYTES % 1.0 % (0-0); MONOCYTES % MANUAL 3.0 % (2.0-8.0); NEUTROPHILS % MANUAL 68.0 % (45.0-75.0); PLATELET ESTIMATE NORMAL
[2025-09-01 15:25] LABS: CREATININE 1.6 mg/dL (0.6-1.3)
[2025-09-01 15:27] LABS: TROPONIN I HIGH SENSITIVITY 135 ng/L (3.0-53)
[2025-09-01 15:39] LABS: INR 1.0
[2025-09-01] MEDS: ENOXAPARIN 120MG/0.8ML SYR SUBCUT SCH (15:59)
[2025-09-01] MEDS: ASPIRIN 325MG EC TABLET PO SCH (15:59)
[2025-09-01] MEDS: KCL 20MEQ/100ML PREMIX 100 ML IV SCH (16:07)
[2025-09-01] MEDS ORDERED: DEXTROSE 50% WATER 50ML SYRINGE IV PRN (17:15)
[2025-09-01] MEDS ORDERED: MAGNESIUM/ALUMINUM HYDROXIDE/SIMETHICONE 30ML UDC PO PRN (17:15)
[2025-09-01] MEDS ORDERED: MORPHINE SULFATE 2 MG/ML INJ (NOT FOR IM USE) IV PRN (17:15)
[2025-09-01] MEDS ORDERED: CLONIDINE 0.1MG TABLET PO PRN (17:15)
[2025-09-01] MEDS ORDERED: HYDROCODONE/ACETAMINOPHEN 5/325MG TABLET PO PRN (17:15)
[2025-09-01] MEDS ORDERED: ZOLPIDEM TARTRATE 5MG TABLET PO PRN (17:15)
[2025-09-01] MEDS ORDERED: ONDANSETRON HCL 4MG/2ML INJ IV PRN (17:15)
[2025-09-01] MEDS: SODIUM CHLORIDE 0.9% 1,000 ML IV SCH (17:27)
[2025-09-01] MEDS: VANCOMYCIN 1G PREMIX 200 ML IV SCH (17:45)
[2025-09-01] MEDS: INSULIN LISPRO 100 UNITS/ML SUBCUT SCH (18:20)
[2025-09-01 20:55] LABS: GLUCOSE URINE 3+ (NEGATIVE); KETONES URINE NEGATIVE (NEGATIVE); LEUKOCYTE ESTERASE URINE NEGATIVE (NEGATIVE); NITRITE URINE NEGATIVE (NEGATIVE); OCCULT BLOOD URINE 1+ (NEGATIVE); PH URINE 5.0 (4.5-8.0); PROTEIN URINE 2+ (NEGATIVE); SPECIFIC GRAVITY URINE 1.028 (1.005-1.030); UROBILINOGEN URINE 0.2 E.U./dL (0.2-1.0)
[2025-09-01] MEDS: BLOOD SUGAR DIAGNOSTIC STRIP TEST SCH (21:00)
[2025-09-01 21:09] LABS: CLARITY URINE SL HAZY (CLEAR); COLOR URINE STRAW (YELLOW)
[2025-09-01 21:11] LABS: BACTERIA URINE TRACE; COARSE GRANULAR CASTS URINE 0-5 /lpf; MUCUS URINE TRACE /lpf (NONE/TRACE); RBC URINE 0-2 /hpf (0-2); SQUAMOUS EPITHELIAL CELL URINE RARE /lpf (RARE/1+); WBC URINE 0-2 /hpf (0-2)
[2025-09-01 21:15] VITALS: BP 141/80; PULSE 79; RESP 19; TEMP 36.9; TEMP 36.974; O2SAT 97
[2025-09-01 21:16] LABS: *AMPHETAMINES SCREEN URINE NEGATIVE (NEGATIVE); *BARBITURATES SCREEN URINE NEGATIVE (NEGATIVE); *BENZODIAZEPINES SCREEN URINE NEGATIVE (NEGATIVE); *COCAINE SCREEN URINE NEGATIVE (NEGATIVE); CANNABINOID URINE SCREEN NEGATIVE (NEGATIVE); ECSTASY MDMA SCREEN URINE NEGATIVE (NEGATIVE); METHADONE URINE SCREEN NEGATIVE (NEGATIVE); OPIATES URINE SCREEN NEGATIVE (NEGATIVE); PHENCYCLIDINE URINE SCREEN NEGATIVE (NEGATIVE)
[2025-09-01 21:42] LABS: INFLUENZA TYPE A Presumptive Negative (Pres. Neg.); INFLUENZA TYPE B Presumptive Negative (Pres. Neg.)
[2025-09-02] VITALS (7 sets, daily range): BP systolic 113–141; BP diastolic 63–82; PULSE 77–87; RESP 17–20; TEMP 36.7–37.4; O2SAT 93–99
[2025-09-02] MEDS: PIPERACILLIN/TAZO 3.375G/50ML 50 ML IV SCH (00:22)
[2025-09-02] MEDS: ATORVASTATIN CALCIUM 20MG TABLET PO SCH (00:22)
[2025-09-02] MEDS: INSULIN GLARGINE 100 UNITS/ML SUBCUT SCH (00:25)
[2025-09-02 00:37] LABS: TROPONIN I HIGH SENSITIVITY 146 ng/L (3.0-53)
[2025-09-02] MEDS: ACETAMINOPHEN 325MG TABLET PO PRN (01:03)
[2025-09-02] MEDS: ENOXAPARIN 120MG/0.8ML SYR SUBCUT SCH (06:29)
[2025-09-02 07:19] LABS: BASOPHILS % 0.2 % (0.0-2.0); CREATININE 1.6 mg/dL (0.6-1.3); EOSINOPHILS % 0.2 % (0.0-5.0); HEMATOCRIT. 38.5 % (42.0-52.0); HEMOGLOBIN. 12.5 g/dL (14.0-18.0); LYMPHOCYTES % 10.4 % (20.0-50.0); MEAN PLATELET VOLUME 10.3 fl (7.4-10.4); MONOCYTES % 11.9 % (2.0-8.0); NEUTROPHILS % 77.3 % (40.0-76.0); PLATELET 138 x1000/uL (130-400); RED BLOOD CELL COUNT 4.44 mill/uL (4.7-6.1); RED CELL DISTRIBUTION WIDTH 14.5 % (11.6-14.6); UREA NITROGEN BLOOD 27.0 mg/dL (9-23)
[2025-09-02 07:35] LABS: TROPONIN I HIGH SENSITIVITY 146 ng/L (3.0-53)
[2025-09-02] MEDS: GABAPENTIN 300MG CAPSULE PO SCH (08:52)
[2025-09-02] MEDS: PANTOPRAZOLE SODIUM 40 MG/VIAL IV SCH (08:52)
[2025-09-02] MEDS: POTASSIUM CHLORIDE 20MEQ/PACKET PO SCH (08:52)
[2025-09-02] MEDS: TAMSULOSIN HCL 0.4MG SR CAPSULE PO SCH (08:52)
[2025-09-02] MEDS: AMLODIPINE 10MG TABLET PO SCH (08:53)
[2025-09-02] MEDS: VANCOMYCIN 750MG PREMIX 150 ML IV SCH (09:23)
[2025-09-02] MEDS ORDERED: POTASSIUM CHLORIDE 20MEQ TABLET SR PO SCH (12:00)
[2025-09-02] MEDS ORDERED: MORPHINE SULFATE 4 MG/ML INJ (FOR IV/IM USE) IV PRN (13:26)
[2025-09-02] MEDS ORDERED: NALOXONE HCL 0.4MG/ML VIAL IV PRN (13:30)
[2025-09-02] MEDS: DILTIAZEM HCL 60MG TABLET PO SCH (14:41)
[2025-09-03] VITALS: BP 132/60; PULSE 85; RESP 16; TEMP 37.4; O2SAT 92
[2025-09-03 04:00] VITALS: BP 125/60; PULSE 76; RESP 14; TEMP 37.2; O2SAT 93
[2025-09-03 07:43] LABS: CREATININE 1.2 mg/dL (0.6-1.3); UREA NITROGEN BLOOD 23 mg/dL (9-23)
[2025-09-03 07:54] LABS: HEMATOCRIT. 38.2 % (42.0-52.0); HEMOGLOBIN. 12.5 g/dL (14.0-18.0); MEAN PLATELET VOLUME 10.0 fl (7.4-10.4); PLATELET 166 x1000/uL (130-400); RED BLOOD CELL COUNT 4.43 mill/uL (4.7-6.1); RED CELL DISTRIBUTION WIDTH 14.7 % (11.6-14.6)
[2025-09-03 08:00] VITALS: BP 130/73; PULSE 79; RESP 16; TEMP 36.9; O2SAT 100
[2025-09-03] MEDS: POTASSIUM CHLORIDE 20MEQ TABLET SR PO SCH (09:26)
[2025-09-03 12:00] VITALS: BP 129/82; PULSE 76; RESP 19; TEMP 36.5; O2SAT 98
[2025-09-03 16:00] VITALS: BP 127/79; PULSE 74; RESP 17; TEMP 36.4; O2SAT 95
[2025-09-03 18:58] LABS: BAND% 12.0 % (1.0-6.0); LYMPHOCYTES % MANUAL 18.0 % (20.0-50.0); MONOCYTES % MANUAL 9.0 % (2.0-8.0); NEUTROPHILS % MANUAL 61.0 % (45.0-75.0); PLATELET ESTIMATE NORMAL
[2025-09-03 20:00] VITALS: BP 133/72; RESP 16; TEMP 36.5; O2SAT 99
[2025-09-03] MEDS: VANCOMYCIN 1G PREMIX 200 ML IV SCH (21:11)
[2025-09-03] MEDS: CEFTRIAXONE 2GM/50ML 50 ML IV SCH (21:30)
[2025-09-04] VITALS: BP 153/80; RESP 17; TEMP 36.6; O2SAT 98
[2025-09-04 04:00] VITALS: BP 129/73; RESP 18; TEMP 36.8; O2SAT 97
[2025-09-04 08:00] VITALS: BP 128/73; PULSE 74; RESP 10; TEMP 36.3; O2SAT 94
[2025-09-04 09:10] LABS: BASOPHILS % 0.5 % (0.0-2.0); EOSINOPHILS % 2.0 % (0.0-5.0); HEMATOCRIT. 37.6 % (42.0-52.0); HEMOGLOBIN. 12.4 g/dL (14.0-18.0); LYMPHOCYTES % 23.3 % (20.0-50.0); MEAN PLATELET VOLUME 9.8 fl (7.4-10.4); MONOCYTES % 9.9 % (2.0-8.0); NEUTROPHILS % 64.3 % (40.0-76.0); PLATELET 207 x1000/uL (130-400); RED BLOOD CELL COUNT 4.37 mill/uL (4.7-6.1); RED CELL DISTRIBUTION WIDTH 14.4 % (11.6-14.6)
[2025-09-04 09:31] LABS: CREATININE 1.1 mg/dL (0.6-1.3); UREA NITROGEN BLOOD 17 mg/dL (9-23)
[2025-09-04 12:00] VITALS: BP 150/78; PULSE 78; RESP 15; TEMP 36.6; O2SAT 98
[2025-09-04] MEDS ORDERED: LIDOCAINE HCL 1% 10 MG/ML 10ML VIAL ONE (13:33)
[2025-09-04 16:00] VITALS: BP 145/87; PULSE 67; RESP 22; TEMP 36.7; O2SAT 96
[2025-09-04 20:04] VITALS: BP 160/94; PULSE 72; RESP 19; TEMP 36.9; O2SAT 97
[2025-09-05] VITALS (10 sets, daily range): BP systolic 129–171; BP diastolic 68–97; PULSE 65–105; RESP 14–18; TEMP 36.1–36.7; O2SAT 97–98
[2025-09-05] MEDS ORDERED: GUAIFENESIN-DM 200MG-20MG/10ML UDC PO PRN (06:45)
[2025-09-05] MEDS: IPRATROPIUM/ALBUTEROL 0.5-3(2.5)MG/3ML NEB HHN SCH (10:00)
[2025-09-05] MEDS: CEFTRIAXONE 2GM/50ML 50 ML IV SCH (17:22)
== END 2025-09-05 20:54 | disposition home or self-care (01) | DRG 349 ==
LOC: ER 12:31 → EDBEDREQTM 17:10 → EDBEDREQ 17:10 → ENRESERV 20:18 → 3WST 21:07
PROVIDERS: ADMIT Internal Medicine; ATTEND Internal Medicine
PROC: 02HV33Z Insertion of Infusion Device into Superior Vena Cava, Percutaneous Approach (ICD-10-PCS; principal; 2025-09-04)
PROC: B5181ZA Fluoroscopy of Superior Vena Cava using Low Osmolar Contrast, Guidance (ICD-10-PCS; 2025-09-04)
PROC: B548ZZA Ultrasonography of Superior Vena Cava, Guidance (ICD-10-PCS; 2025-09-04)
DX: T87.44 Infection of amputation stump, left lower extremity (principal); A41.59 Other Gram-negative sepsis; I21.4 Non-ST elevation (NSTEMI) myocardial infarction; L97.429 Non-pressure chronic ulcer of left heel and midfoot with unspecified severity; M86.8X7 Other osteomyelitis, ankle and foot; E11.621 Type 2 diabetes mellitus with foot ulcer; I12.9 Hypertensive chronic kidney disease with stage 1 through stage 4 chronic kidney disease, or unspecified chronic kidney disease; N17.9 Acute kidney failure, unspecified; N18.1 Chronic kidney disease, stage 1; Z20.822 Contact with and (suspected) exposure to COVID-19; E11.40 Type 2 diabetes mellitus with diabetic neuropathy, unspecified; E78.5 Hyperlipidemia, unspecified; E66.01 Morbid (severe) obesity due to excess calories; E11.22 Type 2 diabetes mellitus with diabetic chronic kidney disease; E87.6 Hypokalemia; E11.51 Type 2 diabetes mellitus with diabetic peripheral angiopathy without gangrene; F10.90 Alcohol use, unspecified, uncomplicated; Y90.9 Presence of alcohol in blood, level not specified; Y83.8 Other surgical procedures as the cause of abnormal reaction of the patient, or of later complication, without mention of misadventure at the time of the procedure; Y92.89 Other specified places as the place of occurrence of the external cause; Z68.41 Body mass index [BMI] 40.0-44.9, adult; E11.69 Type 2 diabetes mellitus with other specified complication
CPT/HCPCS: 36415; 71045; 77001; 80048; 80076; 80202; 80305; 81003; 82962; 83605; 84145; 84443; 84484; 85025; 87070; 87077; 87186; 87426; 87430; 87804; 93005; 93306; 93970; 94070; 94640; 97162; 99291; A4606; C1725; J0696; J1650; J1815; J2003; J2470; J2543; J3373; J3480; J7030